=== PATIENT | female | born 1945 | race African-American/Black ===

== ENCOUNTER → 2020-07-16 13:25 | Outpatient (CLI) | payer OTHER, SELFPAY ==
[2020-07-16 15:13] LABS: COVID19 -Nasal RAPID Negative (Negative)
== END ==
PROVIDERS: Visit Provider Physician Assistant
DX: Z01.812 Encounter for preprocedural laboratory examination (principal); Z20.822 Contact with and (suspected) exposure to COVID-19
CPT/HCPCS: 87635; C9803

== ENCOUNTER 2020-07-18 08:50 | Day surgery (SDC) | payer OTHER, SELFPAY ==
[2020-07-18] VITALS (8 sets, daily range): BP systolic 101–169; BP diastolic 51–73; PULSE 45–57; RESP 14–17; TEMP 36.2–37.3; O2SAT 94–99; BMI 32.5
--- NOTE | 2020-07-18 | PATH_ITS ---
[facility] Accession Number: [id number] . 01 Material submitted: . PART A: small bowel - SMALL BOWEL BIOPSY PART B: gastrointestinal site - GASTRIC BIOPSY PART C: colon - CECAL POLYP X3 PART D: colon - RANDOM COLON BIOPSIES PART E: colon - DESCENDING COLON POLYP . 01 Clinical history: . SDC . 02 Diagnosis: A. Small Bowel, Biopsy: Small bowel mucosa with no diagnostic abnormality. Negative for active inflammation, features of sprue, dysplasia, and malignancy. . B. Stomach, Biopsy: Chronic gastritis with intestinal metaplasia. Negative for Helicobacter organisms by immunohistochemistry. Negative for dysplasia and malignancy. . C. Cecum, Polyps, Biopsy: Fragments of tubular adenoma, sessile serrated adenoma, and benign lymphoid aggregate. . D. Random Colon, Biopsies: Colonic mucosa with no diagnostic abnormality. Negative for active, chronic, and microscopic colitis. Negative for dysplasia and malignancy. . E. Descending Colon, Polyp, Biopsy: Tubular adenoma. [facility] 07/24/2020 1418 Local . 02 Electronically signed: . Ana Ruiz MD, Pathologist NPI- [id number] . 01 Gross description: . Part A: SMALL BOWEL BIOPSY: Received in formalin are 4 fragment(s) of kaplan, soft tissue measuring 0.1 x 0.1 x 0.1 cm to 0.3 x 0.3 x 0.2 cm submitted entirely in 1 cassette(s) Part B: GASTRIC BIOPSY: Received in formalin are 3 fragment(s) of kaplan, soft tissue measuring 0.1 x 0.1 x 0.1 cm to 0.3 x 0.3 x 0.2 cm submitted entirely in 1 cassette(s) Part C: CECAL POLYP X3: Received in formalin are 4 fragment(s) of kaplan, soft tissue measuring 0.1 x 0.1 x 0.1 cm to 0.5 x 0.3 x 0.2 cm submitted entirely in 1 cassette(s) Part D: RANDOM COLON BIOPSIES: Received in formalin are 3 fragment(s) of kaplan, soft tissue measuring 0.2 x 0.2 x 0.2 cm to 0.4 x 0.3 x 0.2 cm submitted entirely in 1 cassette(s) Part E: DESCENDING COLON POLYP: Received in formalin is 1 fragment(s) of kaplan, soft tissue measuring 0.3 x 0.3 x 0.3 cm submitted entirely in 1 cassette(s) /KAYLEE 07/19/2020 1843 Local . 02 Microscopic: . B. An immunohistochemical stain was performed to evaluate for Helicobacter organisms and is negative. The control stain showed appropriate reactivity. . * This test was developed and its performance characteristics determined by [employer]. It has not been cleared or approved by the U.S. Food and Drug Administration. The FDA has determined that such clearance or approval is not necessary. This test is used for clinical purposes. It should not be regarded as investigational or for research. . 02 Pathologist provided ICD-10: D12.0, D12.4 . 02 CPT . 724901, 853435, 077628, 233669, 488953, H88363 Performed at: 01 [facility] [address] [id number] MD Festus Armenta MD Phone: [phone] Performed at: 02 [facility] [address] [place], [place] [id number] MD nAa Ruiz MD Phone: [phone]
[2020-07-18] MEDS: SODIUM CHLORIDE 0.9% 1,000 ML 70 ML IV (09:55)
--- NOTE | 2020-07-18 10:01 | PM.HP.1 ---
History of Present Illness History of Present Illness Date Patient Seen: 07/18/20 Time Patient Seen: 09:55 Chief complaint: SDC Narrative: Patient is a very pleasant 75-year-old female who presented for EGD and colonoscopy. She was last evaluated by [facility] on June 20, 2024. She does describe a change in bowel habits with alternating diarrhea and constipation. She does have a personal history colon polyps in 2007 and was constant. She has also describes abdominal bloating. She has a history of hiatal hernia. She has noticed intermittent rectal bleeding. Patient History Medical History (Updated 07/18/20 @ 08:45 by Rick Boone RN) Asthma Chronic back pain Colonoscopy planned Hiatal hernia Hypertension Surgical History (Updated 07/18/20 @ 08:45 by Rick Boone RN) H/O sinus surgery History of dilatation and curettage Family & Social History Social History: household members family Tobacco & Substance use: Tobacco type cigarettes Smoking Status Former smoker Smoking packs per day 1 alcohol intake never Substance Use Type does not use Meds Home Medications and Allergies Home Medications Medication Instructions Recorded Confirmed Type amlodipine benzoate 10 mg PO DAILY 07/18/20 07/18/20 History atorvastatin 20 mg PO DAILY 07/18/20 07/18/20 History hydrochlorothiazide 25 mg PO DAILY 07/18/20 07/18/20 History lisinopril 40 mg PO DAILY 07/18/20 07/18/20 History metformin 500 mg PO BID 07/18/20 07/18/20 History metoprolol tartrate 50 mg PO BID 07/18/20 07/18/20 History Allergies Allergy/AdvReac Type Severity Reaction Status Date / Time codeine Allergy Intermediate ITCHING Verified 07/18/20 09:17 penicillin V Allergy Intermediate Rash Verified 07/18/20 09:17 Sulfa (Sulfonamide Allergy Intermediate Gastrointestinal Verified 07/18/20 09:17 Antibiotics) Upset alcohol Allergy Hives Verified 07/18/20 09:24 Review of Systems Review of Systems ROS: Yes All systems reviewed with the patient and are negative except as otherwise documented Exam Vital Signs (past 8 hours): - 07/18/20 09:34 Temperature 98.0 F Pulse Rate 57 L Respiratory Rate 16 Blood Pressure 169/73 H Pulse Oximetry 99 Oxygen Delivery Method Room Air Const General: cooperative, healthy appearing, comfortable, well developed and well groomed Nutritional Appearance: well nourished Orientation: alert, awake and oriented x3 HENMT Head: normal to inspection, normocephalic and atraumatic Resp Effort & Inspection: normal respiratory effort and able to speak in complete sentences Auscultation: clear to auscultation bilaterally Cardio Rate: regular rate Rhythm: regular rhythm Heart Sounds: S1 normal and S2 normal GI Palpation: soft Auscultation: normal bowel sounds Extrem Right lower extremity: no edema Left lower extremity: no edema Assessment & Plan Assessment & Plan narrative: 1. Change in bowel habits with alternating diarrhea and constipation 2. History of colon polyps, last colonoscopy 2007 3. Abdominal bloating 4. History of hiatal hernia 5. Intermittent rectal bleeding EGD and colonoscopy today, further recommendations to follow
[2020-07-18] MEDS: fentaNYL 250 MCG/5 ML INJ IV (10:35)
--- NOTE | 2020-07-18 10:35 | P.OP.ENDO_ITS ---
Operative Date/Time/Diagnoses Date of procedure: 07/18/20 Time of procedure: 10:06 Procedure Notes Procedure in detail: Surgeon: Lory Arellano DO Procedure: Esophagogastroduodenoscopy with biopsy and colonoscopy with polypectomy Preoperative diagnosis: 1. Change in bowel habits alternating diarrhea and constipation 2. History colon polyps, last colonoscopy 2007 in [place] Three. Bloating 4. History of hiatal hernia 5. Intermittent rectal bleeding Postoperative diagnosis: One. Tortuous lower 3rd of the esophagus 2. Medium-sized hiatal hernia 3. Normal-appearing gastric mucosa rule out H pylori 4. Normal-appearing small bowel rule out celiac sprue 5. Three cecal polyps 2-6 mm 6. Normal-appearing colonic mucosa random colon biopsies to rule out microscopic colitis 7. 5 mm descending colon polyp 8. Thrombosed internal external hemorrhoids Medications: Conscious sedation using 4 mg IV of Midazolam and 125 mcg IV of Fentanyl, 4% lidocaine gargle (total for both procedures) Preanesthesia Assessment An H and P was performed/updated and the Px?s ASA class is 2. The procedure was discussed in detail with the patient. The potential risks and complications including infection, bleeding, missed lesions, perforation, need for surgery in case of perforation, prolonged hospital stay, and were explained. A brief question and answer period was allotted and once all questions were answered, informed consent was obtained. The patient was brought back to the procedure room and placed on standard monitoring. The patient?s vital signs were monitored continuously throughout the entire procedure. Prior to starting, a timeout was performed to confirm the patient?s identity, allergies, medications, and procedure. Procedure in detail The patient was placed in left lateral decubitus position and a bite block was inserted. The tip of the upper endoscope was placed into the mouth and advanced without difficulty under direct visualization into the esophagus. Esophagus: Tortuous lower 3rd of the esophagus Stomach: Medium-sized hiatal hernia Normal-appearing gastric mucosa, biopsy to rule out H pylori Duodenum: Normal-appearing duodenal mucosa, biopsy to rule out celiac sprue After the upper endoscopy, preparations were made for the colonoscopy. Once adequate sedation was obtained a ADRIAN was performed. The digital rectal examination did not reveal any palpable lesions. The tip of the colonoscope was placed in the anal canal and advanced without difficulty all the way to the cecum which was identified by the appendiceal orifice and the ileocecal valve. The 2nd pass of the ascending colon was completed. Three polyps were noted in the cecum ranging from 2-6 mm in size 2 removed with cold snare, 1 with Jumbo forceps. 5 mm polyp noted in the descending colon removed with cold snare. Terminal ileum appeared unremarkable. Colonic mucosa was unremarkable. Random colon biopsies were obtained to rule out microscopic colitis. Thrombosed internal and external hemorrhoids were noted on retroflexion and external inspection. The patient tolerated the procedure well and will be brought back to the recovery area to be discharged once criteria are met. The prep was judged to be good/excellent and adequate to identify polyps less than 5 mm. The withdrawal time was 10min. The total physician intraservice time was 27min. Complications There were no complications and estimated blood loss was minimal. Recommendations Resume previous diet Continue outpatient medications Follow-up pathology results Repeat colonoscopy will be determined after pathology results are reviewed as Follow-up at our office to be scheduled An emergency contact number was given to the patient for any complications related to the procedure
[2020-07-18] MEDS: LIDOCAINE 4% SOLN 50 ML 20 ML TOP (10:36)
[2020-07-18] MEDS: MIDAZOLAM 5 MG/5 ML VIAL IV (10:36)
== END 2020-07-18 11:30 | disposition home or self-care (01) ==
PROVIDERS: PCP Internal Medicine; Referring Provider Student in an Organized Health Care Education/Training Program; Visit Provider Student in an Organized Health Care Education/Training Program
PROC: 0DJ08ZZ Inspection of Upper Intestinal Tract, Via Natural or Artificial Opening Endoscopic (ICD-10-PCS; CPT 43235; principal; 2020-07-18 10:00)
PROC: 0DJD8ZZ Inspection of Lower Intestinal Tract, Via Natural or Artificial Opening Endoscopic (ICD-10-PCS; CPT 45378; 2020-07-18 10:00)
DX: D12.0 Benign neoplasm of cecum (principal); I10 Essential (primary) hypertension; J45.909 Unspecified asthma, uncomplicated; K64.4 Residual hemorrhoidal skin tags; K64.8 Other hemorrhoids; D12.4 Benign neoplasm of descending colon; K29.50 Unspecified chronic gastritis without bleeding; K44.9 Diaphragmatic hernia without obstruction or gangrene
CPT/HCPCS: 45385; 45380; 43239; J2250; J3010

== ENCOUNTER → 2021-03-07 10:29 | Outpatient (CLI) | payer MEDICARE, SELFPAY | PROVIDERS: PCP Internal Medicine; Referring Provider Internal Medicine; Visit Provider Internal Medicine | DX: Z78.0 Asymptomatic menopausal state (principal); M06.9 Rheumatoid arthritis, unspecified; E11.9 Type 2 diabetes mellitus without complications; Z87.891 Personal history of nicotine dependence | CPT/HCPCS: 77080 ==

== ENCOUNTER → 2021-03-30 12:20 | Outpatient (CLI) | payer MEDICARE, SELFPAY ==
--- NOTE | 2021-03-30 | DI.MG.S_ITS ---
BILATERAL DIGITAL SCREENING MAMMOGRAM 3D/2D WITH CAD: 03/30/2021 CLINICAL: Baseline by default. Routine screening. No prior exams were available for comparison. There are scattered fibroglandular elements in both breasts. Current study was also evaluated with a Computer Aided Detection (CAD) system. No significant masses, calcifications, or other findings are seen in either breast. IMPRESSION: NEGATIVE There is no mammographic evidence of malignancy. A 1 year screening mammogram is recommended. This exam was interpreted at Station ID: [id number]. NOTE: For mammograms, a report in lay terms will be sent to the patient. Approximately 15% of breast malignancies will not be visualized mammographically. In the management of a palpable breast mass, a negative mammogram must not discourage biopsy of a clinically suspicious lesion. Electronically Signed By: Evelin layne/kvng:04/01/2021 10:13:04 letter sent: Normal Exam ACR BI-RADS Category 1: Negative 3341F
== END ==
PROVIDERS: PCP Internal Medicine; Referring Provider Internal Medicine; Visit Provider Internal Medicine
DX: Z12.31 Encounter for screening mammogram for malignant neoplasm of breast (principal)
CPT/HCPCS: 77063; 77067

== ENCOUNTER → 2021-10-31 15:36 | Outpatient (CLI) | payer MEDICARE, SELFPAY ==
[2021-10-31 20:30] LABS: COVID19 -Nasal RAPID Negative (Negative)
== END ==
PROVIDERS: PCP Internal Medicine; Visit Provider Physician Assistant
DX: Z20.822 Contact with and (suspected) exposure to COVID-19 (principal)
CPT/HCPCS: 87635

== ENCOUNTER → 2022-07-26 11:07 | Outpatient (CLI) | payer MEDICARE, SELFPAY ==
--- NOTE | 2022-07-29 14:23 | PM.PFT.1 ---
Pulmonary Function Test Referral & Results Date Patient Seen: 07/26/22 Requesting provider: Valeriano Francisco Results: The spirometry demonstrates an FVC of 1.96 L which is 92% of predicted. The FEV1 was measured at 1.58 L which is 96% of predicted. The FEV1/FVC ratio was 80 which is 105% of predicted. Following the administration of bronchodilator there was a 46% improvement in FEF 25-75%. Lung volumes show an SVC of 2.19 L which is 80% of predicted. The diffusing capacity was measured at 15.80 which is 65% of predicted. The maximum voluntary ventilation was reduced Interpretation: This study demonstrates normal forced spirometry but mild reduction in lung volumes suggesting the presence of mild restrictive lung disease There is a [id number] reduction diffusing capacity suggesting disease at the capillary alveolar level Clinical correlation suggested
== END ==
PROVIDERS: PCP Internal Medicine; Referring Provider Internal Medicine Cardiovascular Disease; Visit Provider Internal Medicine Cardiovascular Disease
DX: R06.09 Other forms of dyspnea (principal); Z87.891 Personal history of nicotine dependence; J98.8 Other specified respiratory disorders
CPT/HCPCS: 94060; 94726; 94729

== ENCOUNTER → 2022-08-19 09:25 | Outpatient (CLI) | payer OTHER, SELFPAY ==
--- NOTE | 2022-08-19 23:25 | DI.NM.S_ITS ---
DATE OF SERVICE: 08/19/2022 PROCEDURE: Pharmacological perfusion study. INDICATIONS: Shortness of breath with persistent AFib, hypertension and hyperlipidemia. RADIOPHARMACEUTICAL: 25.7 millicurie technetium-99m Myoview IV was injected at stress and 12.5 millicurie technetium-99m Myoview IV was injected at rest. CARDIAC STRESS: The patient underwent IV Lexiscan perfusion study under the supervision of an attending staff. The patient received IV Lexiscan as per protocol. She remained hemodynamically stable. She felt moderate shortness of breath and chest pressure, hence she was given aminophylline 100 IV and symptoms abated. Baseline rhythm was AFib with rate controlled. During stress, no convincing new ischemic changes seen. The patient remained in AFib. Resting blood pressure was 140/88. RAW DATA: There is breast shadow seen. GATED STUDY: Resting LV ejection fraction 58% and stress LV ejection fraction 51% without any obvious wall motion abnormalities. TID ratio 1.26. It is a pharmacological perfusion study. Lung/heart ratio 0.51, which is abnormal. Gated study stress supine, resting supine and stress prone images were compared to each other. Stress and resting supine images revealed small size, mildly decreased perfusion of distal inferolateral wall, which got resolved with the stress prone images. Stress prone images revealed normal myocardial perfusion. CONCLUSION: This is a normal myocardial perfusion study with tissue attenuation artifact, which got resolved during stress prone images. Stress left ventricular ejection fraction 51%. Underlying atrial fibrillation. Lung/heart ratio 0.51, which is abnormal. Consider 2D echo to assess diastolic dysfunction or significant left side valvular pathology. Overall, as far as perfusion scan is concerned, this is a low-risk myocardial perfusion scan. Yumiko Casas - HAIDER/mikhail/clayton doc#: [id number]/job#: [id number] dd: 08/19/2022 17:07:00 dt: 08/19/2022 23:07:00 DICTATING MD/COPIES TO: Susana Senior MD COPIES MNE: [place];
== END ==
PROVIDERS: PCP Internal Medicine; Referring Provider Internal Medicine Cardiovascular Disease; Visit Provider Internal Medicine Cardiovascular Disease
DX: I48.19 Other persistent atrial fibrillation (principal); R06.09 Other forms of dyspnea; R06.02 Shortness of breath; I10 Essential (primary) hypertension; E78.5 Hyperlipidemia, unspecified
CPT/HCPCS: 78452; 93017; A9502; J2785